=== PATIENT | male | born 1945 | race Caucasian/White ===

== ENCOUNTER 2017-01-08 17:17 | Emergency (ER) | payer MEDICARE ==
[2017-01-08 18:20] LABS: HEMOGLOBIN 14.7 gm/dl (14.0-17.5); RED BLOOD COUNT 5.39 M/UL (4.20-5.50); WHITE BLOOD COUNT 12.3 K/UL (4.5-11.0)
== END 2017-01-09 00:10 | disposition home or self-care (01) ==
LOC: ER1 17:17
PROVIDERS: Emergency Medicine
DX: S41.111A Laceration without foreign body of right upper arm, initial encounter (principal); I50.9 Heart failure, unspecified; Z87.891 Personal history of nicotine dependence; W01.0XXA Fall on same level from slipping, tripping and stumbling without subsequent striking against object, initial encounter; Z91.81 History of falling; Y92.009 Unspecified place in unspecified non-institutional (private) residence as the place of occurrence of the external cause
CPT/HCPCS: 36415; 70450; 71010; 80053; 81001; 82550; 82553; 83690; 83874; 83880; 84484; 85025; 85610; 85730; 87086; 93005; 99284

== ENCOUNTER → 2017-02-01 | Outpatient (CLI) | payer MEDICARE | LOC: HEART CORB 10:04 | DX: I25.10 Atherosclerotic heart disease of native coronary artery without angina pectoris (principal); I25.5 Ischemic cardiomyopathy; I42.0 Dilated cardiomyopathy | CPT/HCPCS: 78452; A9502 ==

== ENCOUNTER → 2017-05-05 | Outpatient (CLI) | payer MEDICARE | LOC: HEART CORB 13:00 | DX: I25.5 Ischemic cardiomyopathy (principal); I42.0 Dilated cardiomyopathy ==